=== PATIENT | male | born 2000 | race African-American/Black ===

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

== ENCOUNTER → 2020-01-26 | Outpatient (CLI) | payer BC | LOC: OD 16:47 | PROVIDERS: ATTEND Otolaryngology | DX: J30.9 Allergic rhinitis, unspecified (principal) | CPT/HCPCS: 36415; 82785; 86003 ==

== ENCOUNTER 2020-03-23 11:14 | Day surgery (SDC) | payer BC ==
[~2020-03-23 11:14] MED LIST: CEFAZOLIN 2 GM/D5W RTU 2 GM/50 ML RTUPB IV PRN
[2020-03-23] MEDS ORDERED: COCAINE HCL 4% TOPICAL SOLN 4 ML ONE (11:38)
[2020-03-23] MEDS ORDERED: TRIAMCINOLONE ACETONIDE INJ 40 MG/1 ML VIAL ONE (11:38)
[2020-03-23] MEDS ORDERED: BACITRACIN ZINC OINTMENT 15 GM ONE (11:38)
[2020-03-23] MEDS ORDERED: LIDOCAINE 2%/EPINEPHRINE INJ 1.7 ML CARTRIDGE ONE (11:39)
[2020-03-23] MEDS ORDERED: ONDANSETRON HCL INJ/PF 4 MG/2 ML SDV ONE (11:40)
[2020-03-23] MEDS ORDERED: FENTANYL CITRATE INJ/PF 100 MCG/2 ML AMPUL ONE (11:41)
[2020-03-23] MEDS ORDERED: DEXAMETHASONE SOD PHOSPHATE INJ 4 MG/1 ML VIAL ONE (11:41)
[2020-03-23] MEDS ORDERED: MIDAZOLAM 2 MG/2 ML INJ ONE (11:41)
[2020-03-23] MEDS ORDERED: SUCCINYLCHOLINE CHLORIDE INJ 200 MG/10 ML VIAL ONE (11:42)
[2020-03-23] MEDS ORDERED: PROPOFOL INJ 200 MG/20 ML VIAL IV ONE (11:42)
[2020-03-23] MEDS: OXYMETAZOLINE HCL 0.05% NASAL SPRAY 15 ML BOTTLE ONE ×2 (12:35→12:38)
--- NOTE | 2020-03-23 14:18 | Operative Report ---
Operative Report-[facility] Operative Report: Date: 23 March 2020 History: 20-year-old male with a history of nasal polyposis. Patient had a pr evious endoscopic sinus surgery. His exam and CT scan revealed nasal polyposis on the right side only. Presents today for a nasal polypectomy, revision maxillary antrostomy, possible septoplasty and inferior turbinate reduction. Inform consent was obtained from the patient Preoperative Diagnosis: 1. Nasal Polyposis 2. Chronic Sinusitis 3. Inferior turbinate hypertrophy 4. Deviated nasal septum Postoperative Diagnosis: Same as above Procedure: 1. Revision maxillary antrostomy, right [CPT: 42658] 2. Revision ethmoidectomy, right [CPT: 25428] 3. Endoscopic nasal polypectomy, right [CPT: 56881] 4. Removal polyps from maxillary sinus, right [CPT: 49298] 5. Inferior turbinate reduction, right [CPT: 89440] 6. Inferior turbinate reduction, left [CPT: 82711] Anesthesia: GETA Description of the procedure: After receiving informed consent, the patient was taken to the operating room and placed supine on the operating room table. After successful reduction and intubation by anesthesia, cottonoids saturated with 4% cocaine were placed into each nasal cavity for approximately 5 minutes. The cottonoids were withdrawn and the nasal septum, middle turbinate and nasal polyps were injected with 2% Xylocaine with 100,000 epinephrine. The cottonoids were replaced. The image guidance system was calibrated to the patient and found to be functioning normally. The patient was then prepped and draped in a sterile fashion. The image guidance instrumentation was also calibrated to the system and found to be functioning. Cottonoids were removed from the right side. Rigid nasal endoscope was inserted into the nasal cavity and the polyps and lateral nasal wall were injected with 2% Xylocaine 100,000 epinephrine. The microdebrider was used to perform the nasal polypectomy. The polyps involved the middle meatus, maxillary antrostomy and ethmoid bowl and medial part of the middle turbinate. A microdebrider was used to remove the nasal polyps and widen the maxillary antrostomy in an anterior and inferior direction. Microdebrider was then used to perform a revision ethmoidectomy removing polyps from the ethmoid bowl. The microdebrider was also used to remove polyps from the right maxillary sinus proper. A 30 degree scope was then used to view the maxillary sinus which revealed total extirpation of all polyps from the maxillary sinus. A a cottonoid saturated with Afrin was then placed into the middle meatus. Attention was then directed to the left side which revealed no evidence of polyps. Attention was then directed to the inferior turbinate reduction portion. Using the Celon, intramural ablation of turbinate tissue was performed on the right inferior turbinate. The turbinate was then medialized and lateralize using a Dilip elevator a similar procedure was done on the left. The cottonoid was removed from the right middle meatus and keeping the middle turbinate medialized, a Sinuva stent was then placed into the middle meatus on the right. Grajeda splints coated in bacitracin were then placed into each nasal cavity and sutured in place using a 3-0 Prolene. Afrin saturated cottonoids were placed into each nasal cavity and secured out front. These will be removed in the PACU. The patient was then returned to anesthesia who successfully extubated the patient without any complications. Estimated blood loss: 15 mL Fluids: 1200 mL The patient was then transported to the post anesthesia care unit in stable condition with spontaneous respirations. No complications.
== END 2020-03-23 14:38 | disposition home or self-care (01) ==
LOC: SC 11:14
PROVIDERS: ATTEND Otolaryngology
DX: J34.3 Hypertrophy of nasal turbinates (principal); J33.9 Nasal polyp, unspecified; J34.2 Deviated nasal septum; J32.9 Chronic sinusitis, unspecified; J30.9 Allergic rhinitis, unspecified; Z03.818 Encounter for observation for suspected exposure to other biological agents ruled out
CPT/HCPCS: 87635; 31256; 31267; 31237; 31255; 30140; C9122; J2250; J3490 ×3; C9046; J1100; J3010; J0330; J2405; J2704; J0690; C9803; 160; J3301